=== PATIENT | female | born 1965 | race Caucasian/White ===

== ENCOUNTER 2020-03-10 15:39 | Observation (INO) ==
[2020-03-10] MEDS ORDERED: Ipratropium/Albuterol Neb 3 ML IH ONE (16:15)
[2020-03-10 17:29] LABS: Troponin I < 0.03 ng/mL (< 0.04)
[2020-03-10 18:07] LABS: BUN/Creatinine Ratio 14 (6-26); Blood Urea Nitrogen 13 mg/dL (6-20); Calcium 8.8 mg/dL (8.6-10.3); Carbon Dioxide 23 mEq/L (23-29); Chloride 106 mEq/L (98-107); Glucose 119 mg/dL (70-105); Osmolality,Calculated 287 (280-300); Sodium 138 mEq/L (136-145); eGFR For African Americans > 60 (> 60); eGFR For Non-African Americans > 60 (> 60)
[2020-03-10 19:42] LABS: Basophils % 0.5 %; Eosinophils % 0.3 %; Hematocrit 40.5 % (35.3-44.9); Hemoglobin 13.2 g/dL (11.5-15.4); Immature Granulocytes % 0.5 % (0-4); Lymphocytes # 1.4 K/mcL (0.6-4.6); Lymphocytes % 21.6 %; Mean Corpuscular HGB Conc 32.6 g/dL (31.6-35.5); Mean Corpuscular Hemoglobin 28.6 pg (28.0-33.3); Mean Corpuscular Volume 87.7 fL (83.0-100.0); Mean Platelet Volume 10.2 fL (9.4-12.4); Monocytes # 0.4 K/mcL (0.0-1.3); Monocytes % 6.3 %; Neutrophils # 4.5 K/mcL (1.6-8.9); Platelet Count 394 K/mcL (140-400); Red Blood Count 4.62 M/mcL (3.82-4.97); Red Cell Distribution Width 13.9 % (11.5-14.5); Segmented Neutrophils % 70.8 %; White Blood Count 6.3 K/mcL (4.3-11.1)
[2020-03-10] MEDS ORDERED: Naloxone 0.4 MG/ML INJ IVP PRN (20:43)
[2020-03-10] MEDS ORDERED: *HR* Promethazine 25 MG/ML VIAL IM PRN (20:53)
[2020-03-10] MEDS ORDERED: Ondansetron 4 MG/2 ML VIAL IVP PRN (20:53)
[2020-03-10] MEDS ORDERED: Acetaminophen 325 MG TABLET PO PRN (20:53)
[2020-03-10] MEDS ORDERED: Ipratropium/Albuterol Neb 3 ML IH PRN (20:59)
[2020-03-11 05:50] LABS: Basophils % 0.7 %; Eosinophils # 0.1 K/mcL (0.0-0.6); Eosinophils % 1.9 %; Hematocrit 39.3 % (35.3-44.9); Hemoglobin 12.5 g/dL (11.5-15.4); Immature Granulocytes % 0.5 % (0-4); Lymphocytes # 1.6 K/mcL (0.6-4.6); Lymphocytes % 36.9 %; Mean Corpuscular HGB Conc 31.8 g/dL (31.6-35.5); Mean Corpuscular Hemoglobin 27.7 pg (28.0-33.3); Mean Corpuscular Volume 86.9 fL (83.0-100.0); Mean Platelet Volume 9.9 fL (9.4-12.4); Monocytes # 0.3 K/mcL (0.0-1.3); Monocytes % 7.2 %; Neutrophils # 2.3 K/mcL (1.6-8.9); Platelet Count 386 K/mcL (140-400); Red Blood Count 4.52 M/mcL (3.82-4.97); Red Cell Distribution Width 14.1 % (11.5-14.5); Segmented Neutrophils % 52.8 %; White Blood Count 4.3 K/mcL (4.3-11.1)
[2020-03-11 05:56] LABS: INR 1.2; Prothrombin Time 13.9 Seconds (9.4-12.1)
[2020-03-11 06:18] LABS: Alanine Aminotransferase 13 Units/L (7-52); Albumin 3.4 g/dL (3.5-5.7); Albumin/Globulin Ratio 1.4 (1.1-2.2); Alkaline Phosphatase 112 Units/L (34-104); Aspartate Amino Transferase 15 Units/L (13-39); BUN/Creatinine Ratio 10 (6-26); Bilirubin,Total 0.9 mg/dL (0.3-1.0); Blood Urea Nitrogen 10 mg/dL (6-20); Calcium 8.5 mg/dL (8.6-10.3); Carbon Dioxide 25 mEq/L (23-29); Chloride 105 mEq/L (98-107); Chol/HDL Ratio 3.4 (0-4.9); Cholesterol 82 mg/dL (< 200); Globulin 2.5 g/dL (2.4-3.5); Glucose 140 mg/dL (70-105); HDL Cholesterol 24 mg/dL (40-59); LDL Cholesterol,Calculated 42 mg/dL (< 100); Lactate Dehydrogenase 183 Units/L (140-271); Magnesium 2.2 mg/dL (1.6-2.6); Osmolality,Calculated 287 (280-300); Phosphorous 3.3 mg/dL (2.7-4.5); Potassium 3.6 mEq/L (3.5-5.1); Sodium 138 mEq/L (136-145); Total Protein 5.9 g/dL (6.4-8.9); Triglycerides 78 mg/dL (< 150); eGFR For African Americans > 60 (> 60); eGFR For Non-African Americans 57 (> 60)
[2020-03-11 06:26] LABS: Ferritin 236 ng/mL (10-120)
[2020-03-11] MEDS: *HR* Enoxaparin 40 MG/0.4 ML SYRINGE SQ SCH (06:54)
[2020-03-11] MEDS: Dexamethasone Sodium Phos/PF 10 MG/ML VIAL IVP SCH (09:48)
[2020-03-11 12:56] LABS: C-Reactive Protein 17 mg/L (Less than 10)
[2020-03-12] MEDS: *HR* Enoxaparin 40 MG/0.4 ML SYRINGE SQ SCH (04:55)
[2020-03-12] MEDS: Dexamethasone Sodium Phos/PF 10 MG/ML VIAL IVP SCH (08:28)
[2020-03-12 16:28] VITALS: BP 141/97
== END 2020-03-12 17:45 | disposition home or self-care (01) ==
LOC: 2NENU 15:39 → EMEROOARM 15:39 → SUATTDRO 20:20 → 2NENU 20:48
PROVIDERS: ADMIT Internal Medicine; ATTEND Internal Medicine